=== PATIENT | male | born 1965 | race Caucasian/White ===

== ENCOUNTER 2019-09-24 19:41 | Emergency (ER) | payer BC ==
[~2019-09-24] VITALS: Ht 190.5 cm; Wt 104.3 kg
[2019-09-24] MEDS ORDERED: WARFARIN (20:04)
[2019-09-24] MEDS ORDERED: METROPOLOL 50 MG (20:04)
[2019-09-24] MEDS ORDERED: DIGOXIN (20:05)
[2019-09-24] MEDS ORDERED: NAPROXEN500 MG PO (23:18)
[2019-09-24] MEDS ORDERED: ULTRACET PO ×2 (23:21)
== END 2019-09-24 23:53 | disposition home or self-care (01) ==
LOC: ER 19:41
DX: M79.641 Pain in right hand (principal)